=== PATIENT | female | born 1945 | race Caucasian/White ===

== ENCOUNTER 2017-11-08 18:16 | Inpatient (IN) | payer MEDICARE, MEDICAID ==
[~2017-11-08] VITALS: Ht 172.7 cm; Wt 72.7 kg
[~2017-11-08 18:16] MED LIST: ACET600C5 PO; AMLO10TA PO; ATOR20TA66 PO; GLUC1KIT IM; INSU100V12 SQ; INSU100V13 SQ; LISI40TA4 PO; METO50TA17 PO; [UNRECOGNIZED DRUG - CODE] EACHEYE
[2017-11-08] MEDS ORDERED: normal saline 1000ML IV soln IVB ONE ×2 (18:25→19:35)
[2017-11-08] MEDS ORDERED: insulin regular, human 10 units/0.1 ml syringe SQ ONE (18:25)
[2017-11-08] MEDS ORDERED: insulin regular, human 10 units/0.1 ml syringe IV ONE (18:25)
[2017-11-08 18:43] LABS: BASOPHILS # (AUTO) 0.1 X10'3 (0-0.2); BASOPHILS % (AUTO) 0.6 % (0-1); EOSINOPHILS # (AUTO) 0.2 X10'3 (0-0.9); EOSINOPHILS % (AUTO) 2.2 % (0-6); HEMATOCRIT 27.8 % (35.0-45.0); HEMOGLOBIN 8.9 g/dl (12.0-16.0); LYMPHOCYTES # (AUTO) 1.6 X10'3 (1.1-4.8); LYMPHOCYTES % (AUTO) 17.1 % (21-51); MEAN CORPUSCULAR HEMOGLOBIN 26.5 PG (27.0-31.0); MEAN CORPUSCULAR VOLUME 82.9 FL (78-98); MEAN PLATELET VOLUME 9.4 FL (7.4-10.4); MONOCYTES # (AUTO) 0.6 X10'3 (0-0.9); MONOCYTES % (AUTO) 6.1 % (2-12); PLATELET COUNT 454 X10'3 (140-440); RED BLOOD COUNT 3.36 X10'6 (4.20-5.60); RED CELL DISTRIBUTION WIDTH 16.2 % (11.5-14.5); WHITE BLOOD COUNT 9.5 X10'3 (4.5-11.0)
[2017-11-08 18:50] LABS: CLARITY,URINE Clear (Clear); COLOR,URINE Yellow (Yellow); GLUCOSE, URINE >=1000 mg/dl (Neg); KETONES,URINE 40 mg/dl (Neg); LEUKOCYTE ESTERASE ,URINE Trace (Neg); NITRITES, URINE Negative (Neg); OCCULT BLOOD,URINE Trace (Neg); PROTEIN,URINE Negative (Neg); UROBILINOGEN,URINE 0.2 E.U/dL (0.2-1.0)
[2017-11-08 18:55] LABS: UA COLLECTION TYPE CLN CATCH MIDSTREAM
[2017-11-08 18:58] LABS: BACTERIA,URINE 1+ /HPF (Neg); RBC,URINE 0-2 /HPF (0-2); SQUAMOUS EPITHELIAL CELL,UR FEW /LPF (FEW); TRANSITIONAL EPI CELLS,URINE FEW /HPF; YEAST FEW /HPF (NEGATIVE)
[2017-11-08 19:02] LABS: ALANINE AMINOTRANSFERASE 12 U/L (12-78); ALBUMIN 2.3 G/DL (3.4-5.0); ALBUMIN/GLOBULIN RATIO 0.5 (1.1-1.5); ALKALINE PHOSPHATASE 66 IU/L (46-116); ANION GAP 27 (8-16); ASPARTATE AMINO TRANSFERASE 10 U/L (10-37); BILIRUBIN,TOTAL 0.6 MG/DL (0.1-1.0); BLOOD UREA NITROGEN 47 MG/DL (7-18); BUN/CREATININE RATIO 20.9 (6.6-38.0); CALCIUM 9.7 MG/DL (8.5-10.1); CHLORIDE 94 MMOL/L (99-107); CREATININE 2.25 MG/DL (0.40-0.90); POTASSIUM 5.1 MMOL/L (3.5-5.1); SODIUM 131 MMOL/L (135-145); TOTAL PROTEIN 7.1 G/DL (6.4-8.2); eGFR 21 ML/MIN
[2017-11-08] MEDS ORDERED: cephalexin 250mg capsule PO ONE (19:10)
[2017-11-08] MEDS ORDERED: insulin regular, human 10 units/0.1 ml syringe IV STA (19:27)
[2017-11-08 19:30] LABS: GLUCOSE 764 MG/DL (70-104); TOTAL CARBON DIOXIDE 9.9 MMOL/L (24-32)
[2017-11-08] MEDS ORDERED: dextrose 50%-water 50ml dispensing syringe IV PRN (19:30)
[2017-11-08] MEDS: insulin regular, human 100 UNITS in normal saline 100ml IV soln 99 ML IV SCH ×4 (19:58→21:04)
[2017-11-08 20:00] LABS: ABG BASE EXCESS -17.5 mmol/L (-2.0-3.0); ABG HCO3 8.5 mmol/L (22.0-26.0); ABG OXYGEN SATURATION 96.3 % (95-98); ABG PCO2 (T) 21.2 mmHg (32.0-45.0); ABG PH (T) 7.219 (7.350-7.450); ABG PO2 (T) 97.9 mmHg (83-108); ALLEN'S TEST Positive; FCOHb 0.2 % (0.5-1.5); FMetHb 0.2 % (0.3-1.12); FO2Hb 95.9 % (94-100); PATIENT TEMPERATURE 36.6; TOTAL HEMOGLOBIN 9.4 G/dl (12.0-16.0)
[2017-11-08 20:54] LABS: MAGNESIUM 1.8 MG/DL (1.5-2.4); PHOSPHORUS 3.4 MG/DL (2.3-4.5)
[2017-11-08] MEDS: normal saline 1000ml 1,000 ML IV SCH (21:12)
[2017-11-08] MEDS ORDERED: insulin regular, DKA only 100 UNIT in normal saline 100ml IV soln 99 ML IV SCH ×2 (21:12)
[2017-11-08] MEDS ORDERED: potassium CL 20mEq in D5-1/2NS 1,000 ML IV PRN (21:12)
[2017-11-08] MEDS ORDERED: sodium phosphate inj. 30 MMOL in dextrose 5%-water 250 ML IV PRN (21:15)
[2017-11-08] MEDS ORDERED: insulin regular, human 10 units/0.1 ml syringe SQ PRN (21:15)
[2017-11-08] MEDS ORDERED: potassium Cl 20 mEq SR tablet PO PRN ×2 (21:15)
[2017-11-08] MEDS ORDERED: potassium Cl 40MEQ/NS 500ml 500 ML IV PRN ×2 (21:15)
[2017-11-08] MEDS ORDERED: Neutra Phos packet PO PRN (21:15)
[2017-11-08] MEDS ORDERED: sodium phosphate inj. 15 MMOL in dextrose 5%-water 150 ML IV PRN (21:15)
[2017-11-08] MEDS ORDERED: AMLO10TA4 PO (21:20)
[2017-11-08] MEDS ORDERED: DOCU-28 PO (21:20)
[2017-11-08] MEDS ORDERED: CARSR60C PO (21:20)
[2017-11-08] MEDS ORDERED: AMIO200T57 PO (21:20)
[2017-11-08] MEDS ORDERED: APIX5TAB3 PO (21:20)
[2017-11-08] MEDS ORDERED: ondansetron/PF 4mg/2ml inj IV PRN (21:30)
[2017-11-08] MEDS ORDERED: acetaminophen 325mg tablet PO PRN (21:30)
[2017-11-08 22:41] LABS: ALBUMIN 2.1 G/DL (3.4-5.0); ANION GAP 22 (8-16); BLOOD UREA NITROGEN 44 MG/DL (7-18); BUN/CREATININE RATIO 20.9 (6.6-38.0); CHLORIDE 103 MMOL/L (99-107); CREATININE 2.11 MG/DL (0.40-0.90); GLUCOSE 368 MG/DL (70-104); PHOSPHORUS 3.7 MG/DL (2.3-4.5); POTASSIUM 3.9 MMOL/L (3.5-5.1); SODIUM 139 MMOL/L (135-145); eGFR 23 ML/MIN
[2017-11-08 22:47] LABS: TOTAL CARBON DIOXIDE 13.9 MMOL/L (24-32)
[2017-11-09] MEDS: normal saline 1000ml 1,000 ML IV SCH ×6 (00:22→21:12)
[2017-11-09 00:23] LABS: ALBUMIN 1.7 G/DL (3.4-5.0); ANION GAP 13 (8-16); BLOOD UREA NITROGEN 38 MG/DL (7-18); BUN/CREATININE RATIO 20.5 (6.6-38.0); CALCIUM 7.8 MG/DL (8.5-10.1); CHLORIDE 110 MMOL/L (99-107); CREATININE 1.85 MG/DL (0.40-0.90); GLUCOSE 198 MG/DL (70-104); POTASSIUM 3.4 MMOL/L (3.5-5.1); SODIUM 143 MMOL/L (135-145); TOTAL CARBON DIOXIDE 19.7 MMOL/L (24-32); eGFR 27 ML/MIN
[2017-11-09 02:09] LABS: BASOPHILS # (AUTO) 0.1 X10'3 (0-0.2); BASOPHILS % (AUTO) 0.8 % (0-1); EOSINOPHILS # (AUTO) 0.2 X10'3 (0-0.9); EOSINOPHILS % (AUTO) 2.5 % (0-6); HEMOGLOBIN 7.3 g/dl (12.0-16.0); LYMPHOCYTES # (AUTO) 1.7 X10'3 (1.1-4.8); LYMPHOCYTES % (AUTO) 19.2 % (21-51); MEAN CORPUSCULAR HEMOGLOBIN 26.9 PG (27.0-31.0); MEAN CORPUSCULAR HGB CONC 33.1 % (33.0-36.5); MEAN CORPUSCULAR VOLUME 81.3 FL (78-98); MEAN PLATELET VOLUME 8.6 FL (7.4-10.4); MONOCYTES # (AUTO) 0.8 X10'3 (0-0.9); MONOCYTES % (AUTO) 8.5 % (2-12); NEUTROPHILS # (AUTO) 6.1 X10'3 (1.8-7.7); PLATELET COUNT 332 X10'3 (140-440); RED BLOOD COUNT 2.69 X10'6 (4.20-5.60); RED CELL DISTRIBUTION WIDTH 15.2 % (11.5-14.5); WHITE BLOOD COUNT 8.9 X10'3 (4.5-11.0)
[2017-11-09 02:19] LABS: HEMATOCRIT 21.9 % (35.0-45.0)
[2017-11-09 02:24] LABS: ALBUMIN 1.9 G/DL (3.4-5.0); ANION GAP 12 (8-16); BLOOD UREA NITROGEN 39 MG/DL (7-18); BUN/CREATININE RATIO 20.2 (6.6-38.0); CALCIUM 8.5 MG/DL (8.5-10.1); CHLORIDE 109 MMOL/L (99-107); CREATININE 1.93 MG/DL (0.40-0.90); GLUCOSE 155 MG/DL (70-104); PHOSPHORUS 3.3 MG/DL (2.3-4.5); POTASSIUM 3.8 MMOL/L (3.5-5.1); SODIUM 142 MMOL/L (135-145); TOTAL CARBON DIOXIDE 21.3 MMOL/L (24-32); eGFR 25 ML/MIN
[2017-11-09 07:06] LABS: ANION GAP 16 (8-16); BLOOD UREA NITROGEN 38 MG/DL (7-18); BUN/CREATININE RATIO 21.8 (6.6-38.0); CHLORIDE 107 MMOL/L (99-107); CREATININE 1.74 MG/DL (0.40-0.90); GLUCOSE 234 MG/DL (70-104); PHOSPHORUS 3.9 MG/DL (2.3-4.5); POTASSIUM 4.6 MMOL/L (3.5-5.1); SODIUM 140 MMOL/L (135-145); TOTAL CARBON DIOXIDE 16.9 MMOL/L (24-32); eGFR 29 ML/MIN
[2017-11-09] MEDS ORDERED: CefTRIAXone/D5W-Rocephin 1gm 50 ML IV SCH (08:00)
[2017-11-09] MEDS ORDERED: K and/or MAG REPLACEMENT MC SCH (08:00)
[2017-11-09] MEDS: amiodarone 200mg tablet PO SCH (08:00)
[2017-11-09] MEDS: apixaban 5mg tablet PO SCH (08:00)
[2017-11-09] MEDS: amLODIPine 5mg tablet PO SCH (08:00)
[2017-11-09] MEDS: metoprolol tartrate 50mg tablet PO SCH ×2 (08:00→19:36)
[2017-11-09 09:56] LABS: ABG BASE EXCESS -16.7 mmol/L (-2.0-3.0); ABG HCO3 8.8 mmol/L (22.0-26.0); ABG PCO2 (T) 20.7 mmHg (32.0-45.0); ABG PH (T) 7.248 (7.350-7.450); ABG PO2 (T) 61.5 mmHg (83-108); ALLEN'S TEST Positive; FCOHb 0.4 % (0.5-1.5); FMetHb 0.2 % (0.3-1.12); FO2Hb 88.5 % (94-100); TOTAL HEMOGLOBIN 9.2 G/dl (12.0-16.0)
[2017-11-09] MEDS: insulin regular, human 100 UNITS in normal saline 100ml IV soln 99 ML IV SCH ×2 (10:07)
[2017-11-09] MEDS ORDERED: hydrALAZINE 20mg/ml inj. IV PRN (10:35)
[2017-11-09] MEDS: diltiazem SR 60mg capsule (twice daily) PO SCH (10:39)
[2017-11-09] MEDS ORDERED: INSU100V30 SQ (11:21)
[2017-11-09] MEDS ORDERED: ROSU40TA29 (11:23)
[2017-11-09] MEDS ORDERED: [UNRECOGNIZED DRUG - CODE] (11:23)
[2017-11-09 11:54] LABS: % IRON SATURATION 11 % (11-46); IRON 32 UG/DL (49-151); TOTAL IRON BINDING CAPACITY 281 UG/DL (259-388)
[2017-11-09] MEDS ORDERED: sodium bicarbonate (8.4%) inj. 50 MEQ in sodium chloride 0.45% 500ml 250 ML IV PRN (12:49)
[2017-11-09] MEDS ORDERED: sodium bicarbonate (8.4%) inj. 100 MEQ in sodium chloride 0.45% 500ml 500 ML IV PRN (12:49)
[2017-11-09] MEDS ORDERED: potassium CL 20mEq in D5-1/2NS 1,000 ML IV PRN (12:49)
[2017-11-09] MEDS ORDERED: potassium Cl 20 mEq SR tablet PO PRN ×2 (12:50)
[2017-11-09] MEDS ORDERED: sodium phosphate inj. 15 MMOL in dextrose 5%-water 150 ML IV PRN (12:50)
[2017-11-09] MEDS ORDERED: Neutra Phos packet PO PRN (12:50)
[2017-11-09] MEDS ORDERED: potassium Cl 40MEQ/NS 500ml 500 ML IV PRN ×2 (12:50)
[2017-11-09] MEDS ORDERED: sodium phosphate inj. 30 MMOL in dextrose 5%-water 250 ML IV PRN (12:50)
[2017-11-09 13:30] VITALS: BP 121/46
[2017-11-09] MEDS: insulin regular, DKA only 100 UNIT in normal saline 100ml IV soln 99 ML IV SCH ×4 (13:31→16:39)
[2017-11-09 13:56] LABS: BASOPHILS # (AUTO) 0.1 X10'3 (0-0.2); BASOPHILS % (AUTO) 0.5 % (0-1); EOSINOPHILS # (AUTO) 0.2 X10'3 (0-0.9); EOSINOPHILS % (AUTO) 1.7 % (0-6); HEMATOCRIT 24.5 % (35.0-45.0); HEMOGLOBIN 8.1 g/dl (12.0-16.0); LYMPHOCYTES # (AUTO) 1.2 X10'3 (1.1-4.8); MEAN CORPUSCULAR HEMOGLOBIN 26.9 PG (27.0-31.0); MEAN CORPUSCULAR HGB CONC 33.2 % (33.0-36.5); MEAN CORPUSCULAR VOLUME 81.1 FL (78-98); MEAN PLATELET VOLUME 8.3 FL (7.4-10.4); MONOCYTES # (AUTO) 0.6 X10'3 (0-0.9); MONOCYTES % (AUTO) 4.7 % (2-12); NEUTROPHILS # (AUTO) 10.1 X10'3 (1.8-7.7); NEUTROPHILS % (AUTO) 83.1 % (42-75); PLATELET COUNT 418 X10'3 (140-440); RED BLOOD COUNT 3.02 X10'6 (4.20-5.60); RED CELL DISTRIBUTION WIDTH 15.5 % (11.5-14.5); WHITE BLOOD COUNT 12.1 X10'3 (4.5-11.0)
[2017-11-09 14:11] LABS: ANION GAP 17 (8-16); BLOOD UREA NITROGEN 39 MG/DL (7-18); BUN/CREATININE RATIO 18.8 (6.6-38.0); CALCIUM 9.2 MG/DL (8.5-10.1); CHLORIDE 108 MMOL/L (99-107); CREATININE 2.08 MG/DL (0.40-0.90); GLUCOSE 185 MG/DL (70-104); POTASSIUM 3.8 MMOL/L (3.5-5.1); SODIUM 143 MMOL/L (135-145); TOTAL CARBON DIOXIDE 17.8 MMOL/L (24-32); eGFR 23 ML/MIN
[2017-11-09 15:00] VITALS: BP 133/51
[2017-11-09 18:16] LABS: BASOPHILS % (AUTO) 0.3 % (0-1); EOSINOPHILS # (AUTO) 0.2 X10'3 (0-0.9); EOSINOPHILS % (AUTO) 2.1 % (0-6); HEMATOCRIT 24.1 % (35.0-45.0); HEMOGLOBIN 7.9 g/dl (12.0-16.0); LYMPHOCYTES # (AUTO) 1.4 X10'3 (1.1-4.8); LYMPHOCYTES % (AUTO) 14.3 % (21-51); MEAN CORPUSCULAR HEMOGLOBIN 26.5 PG (27.0-31.0); MEAN CORPUSCULAR HGB CONC 32.9 % (33.0-36.5); MEAN CORPUSCULAR VOLUME 80.7 FL (78-98); MEAN PLATELET VOLUME 8.2 FL (7.4-10.4); MONOCYTES # (AUTO) 0.6 X10'3 (0-0.9); MONOCYTES % (AUTO) 6.5 % (2-12); NEUTROPHILS # (AUTO) 7.6 X10'3 (1.8-7.7); NEUTROPHILS % (AUTO) 76.8 % (42-75); PLATELET COUNT 409 X10'3 (140-440); RED BLOOD COUNT 2.98 X10'6 (4.20-5.60); RED CELL DISTRIBUTION WIDTH 15.4 % (11.5-14.5); WHITE BLOOD COUNT 9.9 X10'3 (4.5-11.0)
[2017-11-09 18:31] LABS: ALANINE AMINOTRANSFERASE 10 U/L (12-78); ALBUMIN/GLOBULIN RATIO 0.5 (1.1-1.5); ALKALINE PHOSPHATASE 54 IU/L (46-116); ANION GAP 15 (8-16); ASPARTATE AMINO TRANSFERASE 11 U/L (10-37); BILIRUBIN,TOTAL 0.2 MG/DL (0.1-1.0); BLOOD UREA NITROGEN 36 MG/DL (7-18); BUN/CREATININE RATIO 18.8 (6.6-38.0); CALCIUM 8.9 MG/DL (8.5-10.1); CHLORIDE 108 MMOL/L (99-107); CREATININE 1.92 MG/DL (0.40-0.90); GLUCOSE 163 MG/DL (70-104); PHOSPHORUS 2.8 MG/DL (2.3-4.5); POTASSIUM 4.1 MMOL/L (3.5-5.1); SODIUM 142 MMOL/L (135-145); TOTAL CARBON DIOXIDE 18.8 MMOL/L (24-32); TOTAL PROTEIN 6.1 G/DL (6.4-8.2); eGFR 26 ML/MIN
[2017-11-09 19:00] VITALS: BP 148/53
[2017-11-09] MEDS ORDERED: dextrose 50%-water 50ml dispensing syringe IV PRN ×2 (19:20)
[2017-11-09] MEDS ORDERED: MESSAGE TO PHARMACY PO ONE (19:20)
[2017-11-09] MEDS ORDERED: glucagon, human recombinant 1mg kit SUBCUT PRN (19:20)
[2017-11-09] MEDS ORDERED: dextrose ORAL solution 15 GM/59 ML bottle PO PRN ×2 (19:20)
[2017-11-09] MEDS: insulin Lispro (HumaLOG) vial - multi-dose SQ SCH (19:32)
[2017-11-09] MEDS: insulin glargine (Lantus) pen - multi-dose SQ SCH (19:34)
[2017-11-09 21:59] LABS: ALBUMIN 1.9 G/DL (3.4-5.0); ANION GAP 11 (8-16); BLOOD UREA NITROGEN 36 MG/DL (7-18); BUN/CREATININE RATIO 18.8 (6.6-38.0); CHLORIDE 110 MMOL/L (99-107); CREATININE 1.91 MG/DL (0.40-0.90); GLUCOSE 118 MG/DL (70-104); POTASSIUM 4.1 MMOL/L (3.5-5.1); SODIUM 144 MMOL/L (135-145); TOTAL CARBON DIOXIDE 23.5 MMOL/L (24-32); eGFR 26 ML/MIN
[2017-11-09] MEDS: docusate sod 100mg capsule PO SCH (22:00)
[2017-11-09 22:20] LABS: HEMOGLOBIN A1C 10.2 % (4.5-6.2)
[2017-11-09 23:00] VITALS: BP 132/43
[2017-11-09 23:45] LABS: ALBUMIN 1.9 G/DL (3.4-5.0); ANION GAP 11 (8-16); BLOOD UREA NITROGEN 35 MG/DL (7-18); BUN/CREATININE RATIO 18.7 (6.6-38.0); CALCIUM 8.9 MG/DL (8.5-10.1); CHLORIDE 109 MMOL/L (99-107); CREATININE 1.87 MG/DL (0.40-0.90); GLUCOSE 193 MG/DL (70-104); POTASSIUM 4.3 MMOL/L (3.5-5.1); SODIUM 143 MMOL/L (135-145); eGFR 26 ML/MIN
[2017-11-10] MEDS: normal saline 1000ml 1,000 ML IV SCH ×6 (01:12→21:12)
[2017-11-10 03:00] VITALS: BP 128/62
[2017-11-10 05:53] LABS: BASOPHILS # (AUTO) 0.1 X10'3 (0-0.2); BASOPHILS % (AUTO) 0.6 % (0-1); EOSINOPHILS # (AUTO) 0.3 X10'3 (0-0.9); EOSINOPHILS % (AUTO) 3.2 % (0-6); HEMATOCRIT 25.4 % (35.0-45.0); HEMOGLOBIN 8.4 g/dl (12.0-16.0); LYMPHOCYTES # (AUTO) 1.8 X10'3 (1.1-4.8); LYMPHOCYTES % (AUTO) 21.2 % (21-51); MEAN CORPUSCULAR HEMOGLOBIN 26.7 PG (27.0-31.0); MEAN CORPUSCULAR HGB CONC 32.9 % (33.0-36.5); MEAN CORPUSCULAR VOLUME 81.3 FL (78-98); MEAN PLATELET VOLUME 8.9 FL (7.4-10.4); MONOCYTES # (AUTO) 0.5 X10'3 (0-0.9); MONOCYTES % (AUTO) 5.7 % (2-12); NEUTROPHILS # (AUTO) 5.8 X10'3 (1.8-7.7); NEUTROPHILS % (AUTO) 69.3 % (42-75); PLATELET COUNT 387 X10'3 (140-440); RED BLOOD COUNT 3.12 X10'6 (4.20-5.60); RED CELL DISTRIBUTION WIDTH 15.3 % (11.5-14.5); WHITE BLOOD COUNT 8.3 X10'3 (4.5-11.0)
[2017-11-10 05:59] LABS: ALBUMIN 2.1 G/DL (3.4-5.0); ANION GAP 13 (8-16); BLOOD UREA NITROGEN 33 MG/DL (7-18); BUN/CREATININE RATIO 18.6 (6.6-38.0); CALCIUM 9.3 MG/DL (8.5-10.1); CHLORIDE 107 MMOL/L (99-107); CREATININE 1.77 MG/DL (0.40-0.90); GLUCOSE 318 MG/DL (70-104); POTASSIUM 4.3 MMOL/L (3.5-5.1); SODIUM 140 MMOL/L (135-145); TOTAL CARBON DIOXIDE 19.6 MMOL/L (24-32); eGFR 28 ML/MIN
[2017-11-10 06:00] VITALS: BP 158/57
[2017-11-10 07:10] LABS: ALBUMIN 2.1 G/DL (3.4-5.0); ANION GAP 12 (8-16); BLOOD UREA NITROGEN 32 MG/DL (7-18); BUN/CREATININE RATIO 19.6 (6.6-38.0); CALCIUM 9.2 MG/DL (8.5-10.1); CHLORIDE 106 MMOL/L (99-107); CREATININE 1.63 MG/DL (0.40-0.90); GLUCOSE 322 MG/DL (70-104); PHOSPHORUS 2.7 MG/DL (2.3-4.5); POTASSIUM 4.2 MMOL/L (3.5-5.1); SODIUM 139 MMOL/L (135-145); TOTAL CARBON DIOXIDE 20.8 MMOL/L (24-32); eGFR 31 ML/MIN
[2017-11-10] MEDS: K and/or MAG REPLACEMENT MC SCH (08:00)
[2017-11-10] MEDS: metoprolol tartrate 50mg tablet PO SCH ×2 (08:46→19:00)
[2017-11-10] MEDS: diltiazem SR 60mg capsule (twice daily) PO SCH (08:46)
[2017-11-10] MEDS: apixaban 5mg tablet PO SCH (08:46)
[2017-11-10] MEDS: amiodarone 200mg tablet PO SCH (08:46)
[2017-11-10] MEDS: amLODIPine 5mg tablet PO SCH (08:47)
[2017-11-10] MEDS: insulin Lispro (HumaLOG) vial - multi-dose SQ SCH ×3 (08:52→18:59)
[2017-11-10 11:00] VITALS: BP 139/48
[2017-11-10 12:13] LABS: ALBUMIN 2.1 G/DL (3.4-5.0); ANION GAP 13 (8-16); BLOOD UREA NITROGEN 29 MG/DL (7-18); BUN/CREATININE RATIO 16.2 (6.6-38.0); CALCIUM 9.1 MG/DL (8.5-10.1); CHLORIDE 105 MMOL/L (99-107); CREATININE 1.79 MG/DL (0.40-0.90); GLUCOSE 212 MG/DL (70-104); MAGNESIUM 1.6 MG/DL (1.5-2.4); PHOSPHORUS 2.4 MG/DL (2.3-4.5); POTASSIUM 3.6 MMOL/L (3.5-5.1); SODIUM 139 MMOL/L (135-145); TOTAL CARBON DIOXIDE 20.7 MMOL/L (24-32); eGFR 28 ML/MIN
[2017-11-10 14:58] LABS: OCCULT BLOOD STOOL NEGATIVE (Neg)
[2017-11-10 16:00] VITALS: BP 134/44
[2017-11-10 19:00] VITALS: BP 137/57
[2017-11-10] MEDS: docusate sod 100mg capsule PO SCH (21:00)
[2017-11-10] MEDS: insulin glargine (Lantus) pen - multi-dose SQ SCH (21:56)
[2017-11-10 23:00] VITALS: BP 139/43
[2017-11-11] MEDS: normal saline 1000ml 1,000 ML IV SCH ×5 (01:12→17:12)
[2017-11-11 03:00] VITALS: BP 151/47
[2017-11-11 05:59] LABS: BASOPHILS % (AUTO) 0.6 % (0-1); EOSINOPHILS # (AUTO) 0.3 X10'3 (0-0.9); EOSINOPHILS % (AUTO) 3.7 % (0-6); HEMATOCRIT 25.6 % (35.0-45.0); HEMOGLOBIN 8.6 g/dl (12.0-16.0); LYMPHOCYTES # (AUTO) 1.8 X10'3 (1.1-4.8); LYMPHOCYTES % (AUTO) 24.1 % (21-51); MEAN CORPUSCULAR HEMOGLOBIN 26.6 PG (27.0-31.0); MEAN CORPUSCULAR HGB CONC 33.6 % (33.0-36.5); MEAN PLATELET VOLUME 8.5 FL (7.4-10.4); MONOCYTES # (AUTO) 0.5 X10'3 (0-0.9); MONOCYTES % (AUTO) 7.4 % (2-12); NEUTROPHILS # (AUTO) 4.7 X10'3 (1.8-7.7); NEUTROPHILS % (AUTO) 64.2 % (42-75); PLATELET COUNT 421 X10'3 (140-440); RED BLOOD COUNT 3.25 X10'6 (4.20-5.60); RED CELL DISTRIBUTION WIDTH 15.1 % (11.5-14.5); WHITE BLOOD COUNT 7.3 X10'3 (4.5-11.0)
[2017-11-11 06:00] VITALS: BP 129/44
[2017-11-11] MEDS: diltiazem SR 60mg capsule (twice daily) PO SCH (07:51)
[2017-11-11] MEDS: amLODIPine 5mg tablet PO SCH (07:51)
[2017-11-11] MEDS: amiodarone 200mg tablet PO SCH (07:51)
[2017-11-11] MEDS: metoprolol tartrate 50mg tablet PO SCH (07:51)
[2017-11-11] MEDS: apixaban 5mg tablet PO SCH (07:51)
[2017-11-11] MEDS: insulin Lispro (HumaLOG) vial - multi-dose SQ SCH ×2 (08:47→13:52)
[2017-11-11] MEDS: K and/or MAG REPLACEMENT MC SCH (08:54)
[2017-11-11 09:14] LABS: ALANINE AMINOTRANSFERASE 10 U/L (12-78); ALBUMIN/GLOBULIN RATIO 0.5 (1.1-1.5); ALKALINE PHOSPHATASE 64 IU/L (46-116); ANION GAP 11 (8-16); ASPARTATE AMINO TRANSFERASE 12 U/L (10-37); BILIRUBIN,TOTAL 0.3 MG/DL (0.1-1.0); BLOOD UREA NITROGEN 23 MG/DL (7-18); BUN/CREATININE RATIO 14.9 (6.6-38.0); CALCIUM 8.8 MG/DL (8.5-10.1); CHLORIDE 103 MMOL/L (99-107); CREATININE 1.54 MG/DL (0.40-0.90); GLUCOSE 316 MG/DL (70-104); POTASSIUM 4.1 MMOL/L (3.5-5.1); SODIUM 137 MMOL/L (135-145); eGFR 33 ML/MIN
[2017-11-11 11:00] VITALS: BP 124/50
[2017-11-11 15:00] VITALS: BP 126/49
== END 2017-11-11 17:40 | DRG 637 ==
LOC: ER 18:16 → ED HOLD 21:28 → PCU 3S 11-09 13:15
PROVIDERS: ADMIT Family Medicine; ATTEND Family Medicine
DX: E11.10 Type 2 diabetes mellitus with ketoacidosis without coma (principal); E43 Unspecified severe protein-calorie malnutrition; N39.0 Urinary tract infection, site not specified; D64.9 Anemia, unspecified; I48.91 Unspecified atrial fibrillation; E86.0 Dehydration; I12.9 Hypertensive chronic kidney disease with stage 1 through stage 4 chronic kidney disease, or unspecified chronic kidney disease; N18.9 Chronic kidney disease, unspecified; E11.22 Type 2 diabetes mellitus with diabetic chronic kidney disease; E78.5 Hyperlipidemia, unspecified; F12.90 Cannabis use, unspecified, uncomplicated; Z90.49 Acquired absence of other specified parts of digestive tract; Z90.710 Acquired absence of both cervix and uterus; Z79.01 Long term (current) use of anticoagulants; Z79.4 Long term (current) use of insulin; Z79.899 Other long term (current) drug therapy; Z88.5 Allergy status to narcotic agent; Z82.49 Family history of ischemic heart disease and other diseases of the circulatory system; Z83.3 Family history of diabetes mellitus; Z87.891 Personal history of nicotine dependence; Z68.24 Body mass index [BMI] 24.0-24.9, adult
CPT/HCPCS: 36415; 36600; 71045; 80048; 80053; 81001; 82272; 82803; 82948; 83036; 83540; 83550; 83735; 84100; 84145; 85018; 85025; 87070; 87088; 93005; 96361; 96374; 96376; 99291; A6250; J0696; J1815; J2405; J7030